=== PATIENT | female | born 1960 | race Caucasian/White ===

== ENCOUNTER 2017-02-22 12:27 | Inpatient (IN) | payer OTHER ==
--- NOTE | ~2017-02-22 | PA ---
Unit #: [id number] #: [id number] Patient: ARSEN PENN [id number] [facility] [address] [place] [address] [id number] I MR#: [id number] NAME: ARSEN PENN ROOM: P173 Age: 56 Sex: F Admission Date: 02/22/2017 : 1960 Date of Assessment: 02/22/2017 Attending Physician: Saurav Clarke M.D. Admitting Physician: Saurav Clarke M.D. Primary Care Physician: Bryant Floyd M.D. PSYCHIATRIC ASSESSMENT DATE OF SERVICE 02/22/2017. IDENTIFYING DATA Ms. Mock is a 56-year-old white female, who is a resident of [place], [place], who was self-referred to the hospital on a voluntary basis and had a blood alcohol level of 0.439. CHIEF COMPLAINT "I've been detoxing from alcohol and methadone, I've been drinking." HISTORY OF PRESENT ILLNESS Ms. Mock is a 56-year-old white female with a history of alcohol and opioid dependence. Reports that she has been drinking about a fifth of vodka a day, and I quit, I had severe stomach pain and I've been on methadone from about 1992 and taking for the past 2 years and I have a history of feeling I put on methadone. My dad and and I've been with my for 20 years and my dad 6 months later and I had to take care of my mom all the time and I've a lot of grief and I started to drink more and the [facility] told me that I had to stop drinking, but I'm not able to do it on my own. I tried to quit drinking on my own for the past few days and I started having to have and stomach pain and I started throwing up and really bad headaches, and really bad anxiety and I cannot stop or eat anything for the past few days to help with some depression and states "mostly, it is pretty much me and my mom and I can't leave her alone, and I had to take care of her." The patient reports an increasing depression, anxiety, irritability, restlessness, feelings of hopelessness and helplessness, but denies any suicidal ideations, intent, or plan. SUBSTANCE ABUSE HISTORY The patient reports extensive history of substance abuse including alcohol, cannabis, cocaine, opioids, acid and benzodiazepine, but currently alcohol and opioids appear to be her drug of choice. She reports that she has been drinking a fifth of vodka a day and has been getting [facility] as well. PAST PSYCHIATRIC HISTORY The patient has had a history of multiple inpatient chemical dependency treatments at [facility] as well as other facilities and review of the medical records indicate that currently she is not active in any treatment program, is not seeing a psychiatrist, and is not taking any psychotropic medications. Unit #: [id number] #: [id number] Patient: ARSEN PENN PAST MEDICAL HISTORY Hypertension. ALLERGIES No known medication allergies. CURRENT MEDICATIONS Atenolol. PERSONAL AND SOCIAL HISTORY A 56-year-old white female, who reports that she is single, unemployed, and lives at home with her mother and her sister. She reports poor social support system. She reports she is grieving the loss of her father and her . MENTAL STATUS EXAMINATION Middle-aged white female, who was casually dressed with fair personal hygiene, appears to be in no acute distress or discomfort. She was awake and alert on interaction with intact orientation to time, place, and person. Her mood was anxious and depressed with a congruent affect. Her speech was slow and restricted in content. Her thought processes were disorganized with some looseness of associations. She denies any suicidal or homicidal ideations, and also denies any auditory or visual hallucinations. Her insight and judgment remain significantly impaired. DIAGNOSTIC IMPRESSION Psychiatric: 1. Alcohol dependence, moderate and acute withdrawals. 2. Opioid dependence, moderate and acute withdrawals. 3. Alcohol-induced mood disorder. Medical: Hypertension. Stressors: Moderate psychosocial stressors. TREATMENT PLAN 1. The patient has presented with a history of substance abuse and mood disorder, and has been decompensating and will need inpatient hospitalization for detoxification, safety, and stabilization. We will start her back on her home medications. We will adjust the medications and monitor response. 2. Supportive therapy was provided to the patient. ESTIMATED LENGTH OF STAY 5 to 7 days. ABILITY TO HELP SELF Limited. WILLINGNESS TO HELP SELF The patient appears to be willing to help self. STRENGTHS 1. Communicative. 2. Cooperative. PROBLEMS 1. Chronic dysphoric symptoms. Unit #: [id number] #: [id number] Patient: ARSEN PENN 2. Chronic chemical dependency. 3. Poor social support system. DISCHARGE CRITERIA This will be contingent upon the patient's ability to go through detox without having any significant withdrawal symptoms as well as her ability to stay safe to herself, particularly after discharge from the hospital. Dictated by... Don Page/ladi TD: 02/23/2017 07:56 JOB #: [id number] PSYCHIATRIC ASSESSMENT Page 1 of 1 X Saurav Clarke MD X PSYCHIATRIC ASSESSMENT
--- NOTE | ~2017-02-22 | HP ---
Unit #: [id number] #: [id number] Patient: STACI PENN [id number] [place] [address] [id number] I MR#: [id number] NAME: STACI PENN ROOM: P173 Age: 56 Sex: F Admission Date: 02/22/2017 : 1960 Attending Physician: Saurav Clarke M.D. Admitting Physician: Saurav Clarke M.D. Primary Care Physician: Bryant Floyd M.D. HISTORY AND PHYSICAL HISTORY OF PRESENT ILLNESS Staci is a 56 year old [address] to [facility] because of her abuse of alcohol. She has been in a methadone program for many years by her report. She was recently "kicked out" because of he abuse of alcohol. PAST MEDICAL HISTORY 1. Long history of alcohol abuse. 2. History of opioid abuse. 3. History of withdrawal seizures, benzodiazepines. 4. Hepatitis C. a. The patient reports she did not complete treatment. PAST SURGICAL HISTORY Low back. ALLERGIES No known drug allergies. SOCIAL HISTORY Smokes one pack per day. Drinks at least a fifth of liquor on a daily basis. Has a long history of illicit substance abuse. Reports that she has been in a methadone clinic for many many years, but then further reports that she has recently used IV heroin. FAMILY HISTORY Medically noncontributory. REVIEW OF SYSTEMS CONSTITUTIONAL: No fever or chills. HEENT: Denies any sore throat, ear pain or runny nose. CARDIOVASCULAR: Denies chest pain, irregular heart rhythm or palpitations. CHEST: Denies shortness of breath or cough. No hemoptysis. GASTROINTESTINAL: Denies nausea, vomiting, diarrhea or chronic constipation. ENDOCRINE: Denies history of increased thirst or urination. No recent significant weight loss or gain. GENITOURINARY: Denies dysuria, frequency, or hematuria. SKIN: Denies any rashes. HEMATOLOGIC: Denies history of increased bleeding or bruising. MUSCULOSKELETAL: Denies any hot, swollen joints. No generalized muscle pain. NEUROLOGIC: Denies problems with vision or speech. No frequent, severe headaches. No numbness, tingling or weakness in any extremities. Denies Unit #: [id number] #: [id number] Patient: STACI PENN loss of bladder or bowel control. CURRENT MEDICATIONS 1. Detox protocol. 2. Tenormin 25 mg q. day. PHYSICAL EXAMINATION GENERAL: Alert, appearing much older than her stated age of 56. No apparent distress. VITAL SIGNS: Blood pressure 172/110, heart rate 80, respirations 16, and temperature 98.6. WEIGHT: 190. HEIGHT: 5 feet 7 inches. SKIN: Warm and dry without rash or lesion. HEENT: Normocephalic. TMs not viewed. Oral and nasal passages clear. Conjunctivae clear. PERRLA. EOMs intact. NECK: Supple without lymphadenopathy or thyromegaly. HEART: Regular rate and rhythm without murmur. LUNGS: Clear. ABDOMEN: Soft, nontender. : Not done. EXTREMITIES: No evidence of cyanosis, clubbing or edema. Moves all without focal deficit. NEUROLOGICAL: Grossly within normal limits. Cranial Nerves: II: Visual sotelo are intact. III, IV AND : Extraocular movements are intact. Pupils are equal, round and reactive to light. V: Facial sensation is grossly normal. VII: Facial movements and expression are normal. VIII: Auditory acuity grossly intact. IX, X: Uvula is midline. Phonation is normal. XI: Patient shrugs shoulders and turns head normally. XII: Tongue protrudes in the midline. Sensory and Motor Function: Sensory and motor sensation is grossly normal. Motor: moves all extremities well. Coordination: Gait is normal. Deep Tendon Reflexes: Intact. IMPRESSION Psychiatric admission. RECOMMENDATIONS PSYCHIATRIC: Per psychiatrist. MEDICAL: I see no contraindication to participate in this facility's activities. MEDICAL PROGNOSIS Good. MEDICAL CONDITION Stable. Dictated by... Shira Castro P.A.-C. for Don Carr/kirit Unit #: [id number] #: [id number] Patient: STACI PENN TD: 02/23/2017 07:17 JOB #: [id number] HISTORY AND PHYSICAL Page 1 of 1 X Shira Castro HISTORY AND PHYSICAL
--- NOTE | ~2017-02-22 | PN ---
Unit #: [id number] #: [id number] Patient: ARSEN KING [id number] [facility] [address] [place] [address] [id number] I MR#: [id number] NAME: ARSEN KING ROOM: 73 Age: 56 Sex: F Admission Date: 02/22/2017 : 1960 Attending Physician: Saurav Clarke M.D. Admitting Physician: Saurav Calrke M.D. Primary Care Physician: Don Haddad PROGRESS NOTES DATE OF SERVICE: 02/23/2017 SUBJECTIVE Ms. King is a 56-year-old white female with substance abuse and mood disorder, who was seen today and chart was reviewed and the case was discussed with the staff. She has been anxious, withdrawn, and rather seclusive to herself. Meanwhile, she has been cooperative with the treatment recommendations and has been taking the medications and tolerating them fairly well with no reported side effects. MENTAL STATUS EXAMINATION Middle-aged white female, who was casually dressed with fair personal hygiene, appears to be in no acute distress or discomfort. She was awake and alert on interaction with intact orientation. Her mood was anxious with a congruent affect. She denies any suicidal or homicidal ideations and also denies any auditory or visual hallucinations. Her insight and judgment remain slightly impaired. TREATMENT PLAN 1. We will continue her on her current medications and treatment protocol. We will monitor her response to the medications and make further adjustments as needed. 2. We will continue to follow up. Dictated by... Don Page/ladi TD: 02/23/2017 17:42 JOB #: [id number] Unit #: [id number] #: [id number] Patient: ARSEN KING PROGRESS NOTES Page 1 of 1 X Saurav Clarke MD PROGRESS NOTE
--- NOTE | ~2017-02-22 | PN ---
Unit #: [id number] #: [id number] Patient: ARSEN KING [id number] [facility] [address] [place] [address] [id number] I MR#: [id number] NAME: ARSEN KING ROOM: [facility] Age: 56 Sex: F Admission Date: 02/22/2017 : 1960 Attending Physician: Saurav Clarke M.D. Admitting Physician: Saurav Clarke M.D. Primary Care Physician: Don Haddad PROGRESS NOTES DATE 02/24/2017 DISCUSSION Ms. King is seen today in coverage for Dr. Clarke. She complains of difficulty sleeping and restless legs at bedtime. She appears anxious and somewhat agitated and is having active withdrawal symptoms today. She is alert and fully oriented with no evidence of psychosis and no active suicidal ideation. ASSESSMENT Polysubstance dependence. PLAN I will add trazodone at bedtime for insomnia and monitor for response. Dictated by... Don Casiano/yohannes TD: 02/27/2017 08:41 JOB #: [id number] [facility] PROGRESS NOTES Page 1 of 1 X Francesco Martin MD X PROGRESS NOTE
--- NOTE | ~2017-02-22 | DS ---
Unit #: [id number] #: [id number] Patient: ARSEN KING [id number] [place] [address] [id number] I MR#: [id number] NAME: ARSEN KING ROOM: P173 Age: 56 Sex: F Admission Date: 02/22/2017 : 1960 Discharge Date: 02/26/2017 Attending Physician: Saurav Clarke M.D. Primary Care Physician: Bryant Floyd M.D. DISCHARGE SUMMARY IDENTIFYING DATA Ms. King is a 56-year-old white female, who is a resident [place], [place], and was self-referred to the hospital on a voluntary basis with a blood alcohol level of 0.439. DISCHARGE DIAGNOSES Psychiatric: Alcohol dependence, moderate and acute withdrawals; opioid dependence, moderate and acute withdrawals; alcohol-induced mood disorder. Medical: Hypertension. Stressors: Moderate psychosocial stressors. HISTORY OF PRESENT ILLNESS Please see initial psychiatric evaluation for details. PAST PSYCHIATRIC HISTORY Please see initial psychiatric evaluation for details. PAST MEDICAL HISTORY Please see initial psychiatric evaluation for details. HOSPITAL COURSE The patient was admitted to the adult chemical dependency unit at [facility] and was oriented to the hospital environment. Routine p.r.n. medications were initiated, and she was started on both alcohol and opioid detox protocol and was closely monitored. She was taking the medications regularly and was tolerating them fairly well and was able to show a decent and therapeutic response and was able to come out of the detox without any complications and was willing to continue treatment on an outpatient basis and as such, it was decided that she will be discharged home and will continue treatment on an outpatient basis. DISCHARGE MEDICATIONS Tenormin 25 mg a day for hypertension. DISCHARGE CONDITION Stable. PROGNOSIS Fair. Dictated by... Saurav Clarke M.D. Unit #: [id number] #: [id number] Patient: ARSEN KING IAA/modl TD: 02/26/2017 06:38 JOB #: [id number] DISCHARGE SUMMARY Page 1 of 1 X Sauarv Clarke MD X DISCHARGE SUMMARY
[~2017-02-22 12:27] MED LIST: ATENOLOL PO; METHADONE PO; PHENERGAN25 MG PO
[2017-02-23 09:43] LABS: BASOPHIL% 0.6 % (0-2.5); DIFF IND YES; EOSINOPHIL% 0.7 % (0.0-7.0); HEMATOCRIT 40.6 % (35.0-45.0); HEMOGLOBIN 13.8 gm/dL (12.0-16.0); LYMPHOCYTE# 1.4 X10e3 (1.0-3.5); LYMPHOCYTE% 27.8 % (17.0-45.0); MEAN CELL VOLUME 106.4 FL (83-96); MEAN CORPUSCULAR HEMOGLOBIN 36.2 PG (28-34); MEAN PLATELET VOLUME 8.4 FL (6.5-11.5); MONOCYTE# 0.5 X10e3 (0-1.0); NEUTROPHIL% 60.9 % (40-75); PLATELET COUNT 121 X10e3 (140-420); RED BLOOD COUNT 3.81 X10e (3.90-5.30); RED CELL DISTRIBUTION WIDTH 13.9 % (11.0-15.5)
[2017-02-23 10:01] LABS: URINE APPEARANCE CLOUDY; URINE BLOOD NEG (NEG); URINE COLOR DK YELLOW; URINE GLUCOSE NEG (NEG); URINE KETONE 3+ (NEG); URINE LEUKOCYTE ESTERASE 1+ (NEG); URINE NITRATE NEG (NEG); URINE PROTEIN 1+ (NEG); URINE SPECIFIC GRAVITY 1.024 (1.003-1.035)
[2017-02-23 10:04] LABS: URINE BACTERIA AUWI 2+ (NEGATIVE); URINE SQUAMOUS EPITHELIAL CELL FEW /[HPF]
[2017-02-23 10:07] LABS: THYROID STIMULATING HORMONE 2.28 uIU/ml (0.34-5.60)
[2017-02-23 10:14] LABS: FREE THYROXIN (T4) 0.63 ng/dL (0.58-1.64)
[2017-02-23 10:15] LABS: ALBUMIN SERUM 4.2 g/dL (3.5-5.0); BILIRUBIN,TOTAL 1.8 mg/dL (0.2-2.0); BUN/CREATININE RATIO 17.5; CALCIUM SERUM 9.4 mg/dL (8.4-10.2); CREATININE SERUM 1.2 mg/dL (0.6-1.4); GLOM FILT RATE Estimated 51.2 mL/min (>60); PROTEIN TOTAL SERUM 7.3 g/dL (6.0-8.3)
[2017-02-23 10:44] LABS: RBC NORMAL YES; STOMATOCYTE PRESENT
[2017-02-23 10:46] LABS: ANISOCYTOSIS SL; PLATELET ESTIMATE DECREASED (NORMAL)
[2017-02-23 11:02] LABS: AMPHETAMINE NEG (NEG); BARBITURATES NEG (NEG); BENZODIAZEPINES POS (NEG); COCAINE NEG (NEG); MARIJUANA NEG (NEG); OPIATES POS (NEG); TRICYCLIC ANTIDEPRESSANTS NEG (NEG); U METHADONE POS (NEG)
[2017-02-23 11:40] LABS: URINE MUCUS PRESENT
[2017-02-23 11:41] LABS: URINE BILIRUBIN NEG (NEG)
[2017-02-23 11:47] LABS: URBCS1 AUWI 0-2 /[HPF] (0-2)
== END 2017-02-26 09:50 | DRG 897 ==
LOC: P1E 12:27
PROVIDERS: Psychiatry & Neurology Psychiatry
PROC: HZ2ZZZZ Detoxification Services for Substance Abuse Treatment (ICD-10-PCS; principal; 2017-02-22)
DX: F10.239 Alcohol dependence with withdrawal, unspecified (principal); F11.23 Opioid dependence with withdrawal; F10.24 Alcohol dependence with alcohol-induced mood disorder; I10 Essential (primary) hypertension; F17.210 Nicotine dependence, cigarettes, uncomplicated
CPT/HCPCS: 80053; 80307; 81003; 84439; 84443; 85025; 86592

== ENCOUNTER 2017-05-04 07:36 | Emergency (ER) | payer OTHER ==
--- NOTE | ~2017-05-04 | CR126 ---
[facility] A Service of [facility] RADIOLOGY TEXT RESULTS PATIENT: ARSEN PENN LOCATION: SED : [birth year] UNIT #: [id number] AGE: [address]: Az Paula MD SEX: F ORDER DR: [id number] [address] [address] [id number] E MR#: [id number] Acc #: [id number] NAME: ARSEN PENN : 1960 SEX: F STUDY DATE/TIME: 05/04/2017 7:57 UNIT: SED ROOM: STUDY DESCRIPTION: CR Foot Complete Min 3 View Lt Attending Physician: Az Paula M.D. Ordering Physician: Az Paula M.D. Primary Care Physician: Bryant Floyd M.D. MEDICAL IMAGING REPORT This report is preliminary unless electronic signature is present. EXAM Three views left foot. Date: 05/04/2017 HISTORY Foot pain for 3 weeks, bruising to the mid toe and small toe pain. COMPARISON None. FINDINGS There is a transversely oriented mildly nondisplaced fracture involving the proximal to mid shaft of the proximal phalanx of the left fifth toe. There is about 1-2 mm medial displacement of the distal fracture fragment. No definite intra articular fracture extension is seen. No additional fractures identified. No joint dislocation. No retained radiopaque foreign body is seen in the soft tissues. IMPRESSION Minimally-displaced transversely origin fracture involving the proximal to mid shaft of the proximal phalanx of the left fifth toe without definite articular involvement. No joint dislocation. Dictated by... Radha Renae M.D. THIS IS AN ELECTRONICALLY VERIFIED REPORT Radha Renae M.D. at 05/07/2017 8:[address] [facility]/jamari [facility] A Service [facility] RADIOLOGY TEXT RESULTS PATIENT: ARSEN PENN LOCATION: SED : [birth year] UNIT #: [id number] AGE: [address]: Az Paula MD SEX: F ORDER DR: TD: 05/04/2017 12:04 JOB #: [id number] MEDICAL IMAGING REPORT Page 1 of 1
== END 2017-05-04 09:24 | disposition home or self-care (01) ==
LOC: SED 07:36
DX: S92.512A Displaced fracture of proximal phalanx of left lesser toe(s), initial encounter for closed fracture (principal); I10 Essential (primary) hypertension; F17.200 Nicotine dependence, unspecified, uncomplicated; Z79.899 Other long term (current) drug therapy; W22.8XXA Striking against or struck by other objects, initial encounter; Y92.69 Other specified industrial and construction area as the place of occurrence of the external cause
CPT/HCPCS: 73630; 99283

== ENCOUNTER 2017-06-22 16:54 | Inpatient (IN) | payer OTHER ==
[~2017-06-22] VITALS: Ht 167.6 cm; Wt 79.4 kg
--- NOTE | ~2017-06-22 | DS ---
Unit #: [id number] #: [id number] Patient: ARSEN KING [id number] [facility] [address] [place] [address] [id number] I MR#: [id number] NAME: ARSEN KING ROOM: P173 Age: 56 Sex: F Admission Date: 06/22/2017 : 1960 Discharge Date: 06/26/2017 Attending Physician: Saurav Clarke M.D. Primary Care Physician: Bryant Floyd M.D. DISCHARGE SUMMARY IDENTIFICATION DATA Ms. King is a 56-year-old white female who is a resident of [place], [place], and he is known to us from previous encounter and was self-referred to the hospital on voluntary basis with blood alcohol level of 0.235. DISCHARGE DIAGNOSES PSYCHIATRIC: Alcohol dependence, moderate, in acute withdrawals. Opioid dependence, moderate. Benzodiazepine abuse, moderate. Alcohol-induced mood disorder. MEDICAL: Hypertension. STRESSORS: Mild psychosocial stressors. HISTORY OF PRESENT ILLNESS Same as in initial psychiatric evaluation. PAST PSYCHIATRIC HISTORY Same as in initial psychiatric evaluation. PAST MEDICAL HISTORY Same as in initial psychiatric evaluation. HOSPITAL COURSE The patient was admitted to the adult psychiatric and chemical dependence unit at [facility] and was oriented to the hospital environment. Routine p.r.n. medications were initiated, and she was started back on her home medications. Alcohol detox protocol was initiated, and she was closely monitored. She was also given Doxepin to help her with sleep and was closely monitored. He was taking the medications regularly and was tolerating them fairly well and was able to come out of the detox without any complications. He was pushing to leave and was denying any suicidal or homicidal ideations and was not meeting criteria for further inpatient psychiatric hospitalizations. As such it was decided that she will be discharged home, and we will continue treatment on outpatient basis. DISCHARGE MEDICATIONS Doxepin 50 mg at bedtime for sleep. CONDITION AT DISCHARGE Stable. PROGNOSIS Fair. Unit #: [id number] #: [id number] Patient: ARSEN KING Dictated by... Saurav Clarke M.D. IAA/bzg TD: 06/27/2017 08:42 JOB #: [id number] DISCHARGE SUMMARY Page 1 of 1 X Saurav Clarke MD DISCHARGE SUMMARY
--- NOTE | ~2017-06-22 | PA ---
Unit #: [id number] #: [id number] Patient: ARSEN KING [id number] [facility] [address] [place] [address] [id number] I MR#: [id number] NAME: ARSEN KING ROOM: 86 Age: 56 Sex: F Admission Date: 06/22/2017 : 1960 Date of Assessment: Attending Physician: Saurav Clarke M.D. Admitting Physician: Saurav Clarke M.D. Primary Care Physician: Bryant Floyd M.D. PSYCHIATRIC ASSESSMENT DATE OF SERVICE 06/23/2017. IDENTIFYING DATA Ms. King is a 56-year-old, , white female, who is a resident of [place], [place], and is known to us from previous encounter, was self-referred to the hospital on a voluntary basis with a blood alcohol level of 0.235. CHIEF COMPLAINT "I've been in a methadone Clinic for about 25 years and I've been sporadic with meth dosages." HISTORY OF PRESENT ILLNESS Ms. King is a 56-year-old white female with a history of substance abuse and dependence, who is known to me from previous encounter as she was detoxed in 02/2017 and now brought herself back to the hospital requesting detox from alcohol, methadone, and benzodiazepine and stating that she has been with the Methadone Clinic on and off for the last 25 years and she has been sporadic with the dosages and "I'm trying to come off it, my last was like 3 days of lately in the past 3 weeks. I've been drinking at least daily a fifth of vodka, sometime even more." The patient does report increasing depression, anxiety, irritability, restlessness, feelings of hopelessness and helplessness, but denies any suicidal ideations, intent, or plan. SUBSTANCE ABUSE HISTORY The patient reports history of alcohol, cannabis, and cocaine, opioids and acid and benzodiazepine and methadone abuse and reports that she has been drinking a fifth of vodka on daily basis with the last drink being on the day of coming to the hospital and had a blood alcohol level of 0.235 and also reports that she has been using Klonopin and has been on methadone through the [facility] Clinic with the last use 3 days ago. PAST PSYCHIATRIC HISTORY The patient has had a history of chemical dependency treatment at [facility], and review of the medical records indicate that currently she is not active in treatment program, is not seeing a psychiatrist. PAST MEDICAL HISTORY Significant for hypertension and history of withdrawal seizures. ALLERGIES Unit #: [id number] #: [id number] Patient: ARSEN KING No known medication allergies. PERSONAL AND SOCIAL HISTORY A 56-year-old white female, who reports that she is and lives at home with her [id number] and her sister and is currently unemployed and reports poor social support system. MENTAL STATUS EXAMINATION Middle-aged white female, who was casually dressed with fair personal hygiene, appears to be in no acute distress or discomfort. She was awake and alert on interaction with intact orientation to time, place, and person. Her mood was anxious and depressed with a congruent affect. Her speech was slow and restricted in content. She denies any suicidal or homicidal ideations and also denies any auditory or visual hallucinations. Her insight and judgment remain slightly impaired. DIAGNOSTIC IMPRESSION Psychiatric: Alcohol dependence, moderate and acute withdrawals; opioid dependence, moderate; benzodiazepine abuse, moderate; alcohol-induced mood disorder. Medical: Hypertension. Stressors: Moderate psychosocial stressors. TREATMENT PLAN 1. The patient has presented with a history of mood disorder and substance abuse and has been decompensating and will need inpatient hospitalization for safety and stabilization. We will start her on detox protocol. We will closely monitor her for any worsening withdrawal symptoms. 2. Supportive therapy was provided to the patient. 3. Safe, structured, and nourishing environment will be provided. ESTIMATED LENGTH OF STAY 5 to 7 days. ABILITY TO HELP SELF Limited. WILLINGNESS TO HELP SELF The patient appears to be willing to help self. STRENGTHS 1. Communicative. 2. Cooperative. PROBLEMS 1. Chronic dysphoric symptoms. 2. Chronic chemical dependency. 3. Poor social support system. DISCHARGE CRITERIA This will be contingent upon the patient's ability to go through detox without having any significant withdrawal symptoms and her ability to stay safe to herself, particularly after discharge from the hospital. Unit #: [id number] #: [id number] Patient: ARSEN KING Dictated by... Don Page/ladi TD: 06/24/2017 04:42 JOB #: [id number] PSYCHIATRIC ASSESSMENT Page 1 of 1 X Saurav Clarke MD PSYCHIATRIC ASSESSMENT
--- NOTE | ~2017-06-22 | PN ---
Unit #: [id number] #: [id number] Patient: ARSEN KING [id number] [facility] [address] [place] [address] [id number] MR#: [id number] NAME: ARSEN KING ROOM: 73 Age: 56 Sex: F Admission Date: 06/22/2017 : 1960 Attending Physician: Saurav Clarke M.D. Admitting Physician: Saurav Clarke M.D. Primary Care Physician: Don Haddad PROGRESS NOTES DATE OF SERVICE: 06/25/2017 SUBJECTIVE Ms. King is a 56-year-old white female, who was seen today and chart was reviewed and the case was discussed with the staff. She has been anxious, withdrawn, and rather seclusive to herself. Meanwhile, she has been cooperative with the treatment recommendations and has been taking the medications and tolerating them fairly well with no reported side effects. MENTAL STATUS EXAMINATION Middle-aged white female, who was casually dressed with fair personal hygiene, appears to be in no acute distress or discomfort. She was awake and alert on interaction with intact orientation. Her mood was anxious with a congruent affect. She denies any suicidal or homicidal ideations. Her insight and judgment remain slightly impaired. TREATMENT PLAN 1. We will continue her on her current medications and treatment protocol. We will monitor her response to the medications and make further adjustments as needed. 2. We will continue to follow up. Dictated by... Don Page/ladi TD: 06/25/2017 11:23 JOB #: [id number] [facility] PROGRESS NOTES Page 1 of 1 X Saurav Clarke MD X PROGRESS NOTE
--- NOTE | ~2017-06-22 | PN ---
Unit #: [id number] #: [id number] Patient: ARSEN KING [id number] [facility] [address] [place] [address] [id number] MR#: [id number] NAME: ARSEN KING ROOM: [facility] Age: 56 Sex: F Admission Date: 06/22/2017 : 1960 Attending Physician: Saurav Clarke M.D. Admitting Physician: Saurav Clarke M.D. Primary Care Physician: Don Haddad PROGRESS NOTES DATE 06/24/2017 DISCUSSION Ms. King is a 56-year-old white female who was seen today and chart was reviewed and case was discussed with the staff. She has been doing fairly well with no agitation, irritability and has been calm and cooperative with treatment recommendations as she has been taking the medications and tolerating them fairly well with no reported side effects. MENTAL STATUS EXAMINATION Young white female who was casually dressed with fair personal hygiene, appears to be in no acute distress or discomfort. She was awake and alert on interaction with intact orientation. Her mood was anxious with congruent affect. She denies any suicidal or homicidal ideations. Her insight and judgement remains slightly impaired. TREATMENT PLAN 1. We will continue her on her current medications and treatment protocol. We will monitor her response to the medication and make further adjustments as needed. 2. We will continue to follow up. Dictated by... Don Page/kt TD: 06/25/2017 04:28 JOB #: [id number] Unit #: [id number] #: [id number] Patient: ARSEN KING PROGRESS NOTES Page 1 of 1 X Saurav Clarke MD X PROGRESS NOTE
[2017-06-23 12:46] LABS: BASOPHIL% 0.6 % (0-2.5); DIFF IND YES; EOSINOPHIL% 0.7 % (0.0-7.0); HEMATOCRIT 35.8 % (35.0-45.0); HEMOGLOBIN 12.4 gm/dL (12.0-16.0); LYMPHOCYTE# 1.4 X10e3 (1.0-3.5); LYMPHOCYTE% 25.4 % (17.0-45.0); MEAN CELL VOLUME 107.2 FL (83-96); MEAN CORPUSCULAR HEMOGLOBIN 37.2 PG (28-34); MEAN CORPUSCULAR HGB CONC 34.8 g/dL (30-36); MEAN PLATELET VOLUME 7.7 FL (6.5-11.5); MONOCYTE# 0.4 X10e3 (0-1.0); NEUTROPHIL# 3.8 X10e3 (1.5-7.1); NEUTROPHIL% 66.3 % (40-75); PLATELET COUNT 160 X10e3 (140-420); RED BLOOD COUNT 3.34 X10e (3.90-5.30); RED CELL DISTRIBUTION WIDTH 18.4 % (11.0-15.5); WHITE BLOOD COUNT 5.7 X10e3 (4.0-10.5)
[2017-06-23 13:00] LABS: ALBUMIN SERUM 4.4 g/dL (3.5-5.0); BILIRUBIN,TOTAL 2.2 mg/dL (0.2-2.0); BUN/CREATININE RATIO 18.33; CALCIUM SERUM 9.4 mg/dL (8.4-10.2); CREATININE SERUM 0.6 mg/dL (0.6-1.4); GLOM FILT RATE Estimated 103.3 mL/min (>60); POTASSIUM 3.7 mmol/L (3.5-5.1); PROTEIN TOTAL SERUM 7.3 g/dL (6.0-8.3)
[2017-06-23 13:04] LABS: ANISOCYTOSIS MOD; PLATELET ESTIMATE NORMAL (NORMAL)
[2017-06-24 10:56] LABS: URINE APPEARANCE CLEAR; URINE BLOOD NEG (NEG); URINE COLOR DK YELLOW; URINE GLUCOSE NEG (NEG); URINE KETONE TRACE (NEG); URINE LEUKOCYTE ESTERASE TRACE (NEG); URINE NITRATE NEG (NEG); URINE PH 6.5 (5-8); URINE PROTEIN 1+ (NEG)
[2017-06-24 10:59] LABS: URBCS1 AUWI 0-2 /[HPF] (0-2); URINE BACTERIA AUWI NEG (NEGATIVE); URINE SQUAMOUS EPITHELIAL CELL NONE SEEN /[HPF]; UWBCS1 AUWI 0-2 (0-5)
[2017-06-24 11:01] LABS: URINE BILIRUBIN NEG (NEG)
[2017-06-24 11:54] LABS: AMPHETAMINE NEG (NEG); BARBITURATES NEG (NEG); BENZODIAZEPINES POS (NEG); COCAINE NEG (NEG); MARIJUANA NEG (NEG); OPIATES NEG (NEG); TRICYCLIC ANTIDEPRESSANTS NEG (NEG); U METHADONE POS (NEG)
== END 2017-06-26 09:45 | DRG 897 ==
LOC: P1E 18:52
PROVIDERS: Psychiatry & Neurology Psychiatry
DX: F10.239 Alcohol dependence with withdrawal, unspecified (principal); F11.20 Opioid dependence, uncomplicated; F10.24 Alcohol dependence with alcohol-induced mood disorder; Y90.7 Blood alcohol level of 200-239 mg/100 ml
CPT/HCPCS: 80053; 80307; 81003; 85025; 86592; J2550

== ENCOUNTER 2017-07-08 17:00 | Inpatient (IN) | payer OTHER ==
[~2017-07-08] VITALS: Ht 167.6 cm; Wt 83.5 kg
--- NOTE | ~2017-07-08 | PA ---
Unit #: [id number] #: [id number] Patient: ARSEN KING [id number] [place] [address] [id number] I MR#: [id number] NAME: ARSEN KING ROOM: P210 Age: 56 Sex: F Admission Date: 07/09/2017 : 1960 Date of Assessment: Attending Physician: Saurav Clarke M.D. Admitting Physician: Saurav Clarke M.D. Primary Care Physician: Bryant Floyd M.D. PSYCHIATRIC ASSESSMENT DATE OF SERVICE 07/09/2017. IDENTIFYING DATA Ms. King is a 56-year-old white female, who is a resident of [place], [place], and is known to us from previous encounter and was self-referred to the hospital on a voluntary basis. CHIEF COMPLAINT "Alcohol and methadone detox." HISTORY OF PRESENT ILLNESS Ms. King is a 56-year-old white female with history of substance abuse and mood disorder, who is known to us from previous encounter and came to the hospital with a blood alcohol level of 0.141 and stated that she wanted to detox from alcohol and methadone and that she has not been able to dose on methadone due to drinking alcohol and that she drinks a pint or a fifth on a daily basis and drank a fifth earlier today and reports that she has been on methadone since 1992 and does report increasing depression, anxiety, significant consequences because of her addiction, and feelings of hopelessness and helplessness, but denies any suicidal ideations, intent, or plan. SUBSTANCE ABUSE HISTORY The patient reports history of alcohol and opioid abuse and has been using both of those on a regular basis, though she describes alcohol to be her drug of choice and has been drinking a pint or a fifth on a daily basis. PAST PSYCHIATRIC HISTORY The patient has had a history of chemical dependency treatment at [facility], and review of the medical records indicate currently she is not active in any treatment program, is not seeing a psychiatrist, and is not taking any psychotropic medications. PAST MEDICAL HISTORY Hypertension and hepatitis C. ALLERGIES No known medication allergies. CURRENT MEDICATIONS None. Unit #: [id number] #: [id number] Patient: ARSEN KING PERSONAL AND SOCIAL HISTORY A 56-year-old white female, who reports that she is single, unemployed, and lives alone and has poor social support system. MENTAL STATUS EXAMINATION Middle-aged white female, who was casually dressed with fair personal hygiene, appears to be in no acute distress or discomfort. She was awake and alert on interaction with intact orientation to time, place, and person. Her mood was anxious and depressed with a congruent affect. Her speech was slow and restricted in content. She denies any suicidal or homicidal ideations and also denies any auditory or visual hallucinations. Her insight and judgment remain significantly impaired. DIAGNOSTIC IMPRESSION Psychiatric: Alcohol dependence, moderate, in acute withdrawals and opioid dependence, moderate. Medical: Hypertension and hepatitis C. Stressors: Moderate psychosocial stressors. TREATMENT PLAN 1. The patient has presented with a history of mood disorder and substance abuse and has been decompensating and will need inpatient hospitalization for safety and stabilization. We will start her back on her home medications. We will adjust the medications and monitor response. 2. Supportive therapy was provided to the patient. 3. Safe, structured, and nourishing environment will be provided. ESTIMATED LENGTH OF STAY 4 to 5 days. ABILITY TO HELP SELF Limited. WILLINGNESS TO HELP SELF The patient appears to be willing to help self. STRENGTHS 1. Communicative. 2. Cooperative. PROBLEMS 1. Chronic dysphoric symptoms. 2. Chronic chemical dependency. 3. Poor social support system. DISCHARGE CRITERIA This will be contingent upon the patient's ability to go through detox without having any significant withdrawal symptoms as well as her ability to stay safe to herself, particularly after discharge from the hospital. Dictated by... Don Page/ladi TD: 07/09/2017 12:59 JOB #: [id number] Unit #: [id number] #: [id number] Patient: ARSEN KING PSYCHIATRIC ASSESSMENT Page 1 of 1 X Saurav Clarke MD PSYCHIATRIC ASSESSMENT
--- NOTE | ~2017-07-08 | HP ---
Unit #: [id number] #: [id number] Patient: STACI PENN [id number] [place] [address] [id number] MR#: [id number] NAME: STACI PENN ROOM: P210 Age: 56 Sex: F Admission Date: 07/09/2017 : 1960 Attending Physician: Saurav Clarke M.D. Admitting Physician: Saurav Clarke M.D. Primary Care Physician: Bryant Floyd M.D. HISTORY AND PHYSICAL HISTORY OF PRESENT ILLNESS Staci is a 56 year old admitted to [address] [place] [address] because of her continued abuse of alcohol. She has had other admissions to this facility. PAST MEDICAL HISTORY 1. Long history of alcohol abuse. 2. History of opioid abuse. a. She reports that she is in a methadone program. 3. History of withdrawal seizures, benzodiazepines. 4. Hepatitis C. a. She did not complete treatment. 5. High blood pressure. She is noncompliant with medications. PAST SURGICAL HISTORY Low back. ALLERGIES No known drug allergies. SOCIAL HISTORY Smokes one pack per day. Drinks a fifth of liquor on a daily basis. Has a long history of illicit substance abuse but has been in a methadone clinic for many years. FAMILY HISTORY Medically noncontributory. REVIEW OF SYSTEMS CONSTITUTIONAL: No fever or chills. HEENT: Denies any sore throat, ear pain or runny nose. CARDIOVASCULAR: Denies chest pain, irregular heart rhythm or palpitations. CHEST: Denies shortness of breath or cough. No hemoptysis. GASTROINTESTINAL: Denies nausea, vomiting, diarrhea or chronic constipation. ENDOCRINE: Denies history of increased thirst or urination. No recent significant weight loss or gain. GENITOURINARY: Denies dysuria, frequency, or hematuria. SKIN: Denies any rashes. HEMATOLOGIC: Denies history of increased bleeding or bruising. MUSCULOSKELETAL: Denies any hot, swollen joints. No generalized muscle pain. NEUROLOGIC: Denies problems with vision or speech. No frequent, severe Unit #: [id number] #: [id number] Patient: STACI PENN headaches. No numbness, tingling or weakness in any extremities. Denies loss of bladder or bowel control. CURRENT MEDICATIONS 1. Detox protocol 2. Nicotine patch 21 mg q day PHYSICAL EXAMINATION GENERAL: Alert, obese, in no apparent distress. VITAL SIGNS: Blood pressure 138/90, heart rate 90, respirations 16, temperature 98.6. WEIGHT: 184. HEIGHT: 5 foot 6 inches. SKIN: Warm and dry without rash or lesion. HEENT: Normocephalic. TMs not viewed. Oral and nasal passages clear. Conjunctivae clear. Pupils equal, round and reactive to light and accommodation. Extraocular movements intact. NECK: Supple without lymphadenopathy or thyromegaly. HEART: Regular rate and rhythm without murmur. LUNGS: Clear. ABDOMEN: Soft, nontender. : Not done. EXTREMITIES: No evidence of cyanosis, clubbing or edema. Moves all extremities without focal deficit. NEUROLOGICAL: Grossly within normal limits. Cranial Nerves: II: Visual sotelo are intact. III, IV AND : Extraocular movements are intact. Pupils are equal, round and reactive to light. V: Facial sensation is grossly normal. VII: Facial movements and expression are normal. VIII: Auditory acuity grossly intact. IX, X: Uvula is midline. Phonation is normal. XI: Patient shrugs shoulders and turns head normally. XII: Tongue protrudes in the midline. Sensory and Motor Function: Sensory and motor sensation is grossly normal. Motor: moves all extremities well. Coordination: Gait is normal. Deep Tendon Reflexes: Intact. IMPRESSION 1. Psychiatric admission. 2. High blood pressure, not controlled on admission. She is noncompliant with medications. RECOMMENDATIONS PSYCHIATRIC: Per psychiatrist. MEDICAL: 1. I see no contraindications to participating in facility's activities. 2. Start Tenormin 50 mg 1 p.o. q day. Monitor blood pressure q shift. She will need to follow up with her PCP. MEDICAL PROGNOSIS Good. MEDICAL CONDITION Stable. Unit #: [id number] #: [id number] Patient: STACI PENN Dictated by... Shira Castro P.A.-C. for Don Carr/kt TD: 07/09/2017 23:14 JOB #: [id number] HISTORY AND PHYSICAL Page 1 of 1 X Shira Castro HISTORY AND PHYSICAL
[2017-07-09 09:46] LABS: URINE APPEARANCE CLEAR; URINE BILIRUBIN NEG (NEG); URINE BLOOD NEG (NEG); URINE COLOR YELLOW; URINE GLUCOSE NEG (NEG); URINE KETONE NEG (NEG); URINE LEUKOCYTE ESTERASE 2+ (NEG); URINE NITRATE NEG (NEG); URINE PH 6.5 (5-8); URINE PROTEIN NEG (NEG); URINE SPECIFIC GRAVITY 1.016 (1.003-1.035)
[2017-07-09 09:48] LABS: BASOPHIL% 0.8 % (0-2.5); EOSINOPHIL# 0.1 X10e3 (0-0.7); EOSINOPHIL% 1.6 % (0.0-7.0); HEMATOCRIT 30.2 % (35.0-45.0); HEMOGLOBIN 10.4 gm/dL (12.0-16.0); LYMPHOCYTE# 1.3 X10e3 (1.0-3.5); LYMPHOCYTE% 35.6 % (17.0-45.0); MEAN CELL VOLUME 111.8 FL (83-96); MEAN CORPUSCULAR HEMOGLOBIN 38.4 PG (28-34); MEAN CORPUSCULAR HGB CONC 34.3 g/dL (30-36); MEAN PLATELET VOLUME 7.6 FL (6.5-11.5); MONOCYTE# 0.3 X10e3 (0-1.0); MONOCYTE% 8.7 % (3.0-12.0); NEUTROPHIL# 1.9 X10e3 (1.5-7.1); NEUTROPHIL% 53.3 % (40-75); PLATELET COUNT 193 X10e3 (140-420); WHITE BLOOD COUNT 3.5 X10e3 (4.0-10.5)
[2017-07-09 09:49] LABS: DIFF IND YES
[2017-07-09 09:51] LABS: URBCS1 AUWI 0-2 /[HPF] (0-2); URINE BACTERIA AUWI 3+ (NEGATIVE); URINE SQUAMOUS EPITHELIAL CELL FEW /[HPF]; UWBCS1 AUWI 25-50 (0-5)
[2017-07-09 10:01] LABS: ALBUMIN SERUM 3.6 g/dL (3.5-5.0); BILIRUBIN,TOTAL 1.1 mg/dL (0.2-2.0); BUN/CREATININE RATIO 16.66; CALCIUM SERUM 8.5 mg/dL (8.4-10.2); CREATININE SERUM 0.6 mg/dL (0.6-1.4); GLOM FILT RATE Estimated 103.3 mL/min (>60); POTASSIUM 3.6 mmol/L (3.5-5.1); PROTEIN TOTAL SERUM 6.2 g/dL (6.0-8.3)
[2017-07-09 10:19] LABS: AMPHETAMINE NEG (NEG); BARBITURATES NEG (NEG); BENZODIAZEPINES NEG (NEG); COCAINE NEG (NEG); MARIJUANA NEG (NEG); OPIATES NEG (NEG); TRICYCLIC ANTIDEPRESSANTS NEG (NEG); U METHADONE POS (NEG)
[2017-07-09 11:16] LABS: ANISOCYTOSIS SL; PLATELET ESTIMATE NORMAL (NORMAL); STOMATOCYTE PRESENT
== END 2017-07-10 10:40 | disposition left against medical advice (07) | DRG 894 ==
LOC: P2S 07-09 03:07
PROVIDERS: Psychiatry & Neurology Psychiatry
PROC: HZ2ZZZZ Detoxification Services for Substance Abuse Treatment (ICD-10-PCS; principal; 2017-07-09)
DX: F10.239 Alcohol dependence with withdrawal, unspecified (principal); F11.20 Opioid dependence, uncomplicated; I10 Essential (primary) hypertension; B19.20 Unspecified viral hepatitis C without hepatic coma; Z91.14 Patient's other noncompliance with medication regimen
CPT/HCPCS: 80053; 80307; 81003; 85025; 86592

== ENCOUNTER 2017-07-17 19:48 | Inpatient (IN) | payer OTHER ==
[~2017-07-17] VITALS: Ht 167.6 cm; Wt 83.0 kg
--- NOTE | ~2017-07-17 | PN ---
Unit #: [id number] #: [id number] Patient: ARSEN KING [id number] [facility] [address] [place] [address] [id number] MR#: [id number] NAME: ARSEN KING ROOM: P212 Age: 56 Sex: F Admission Date: 07/17/2017 : 1960 Attending Physician: Saurav Clarke M.D. Admitting Physician: Saurav Clarke M.D. Primary Care Physician: Don Haddad PROGRESS NOTES DATE 07/19/2017 DISCUSSION Ms. King is a 56-year-old white female with substance abuse and mood disorder who was seen today and chart was reviewed and case was discussed with the staff. She has been anxious, withdrawn and seclusive to herself. Meanwhile, she has been cooperative with treatment recommendations and has been taking medications and tolerating them fairly well with no reported side effects. MENTAL STATUS EXAMINATION Middle-aged white female who was casually dressed with fair personal hygiene and appears to be in no acute distress or discomfort. She was awake and alert with intact orientation. Her mood was anxious with congruent affect. Her speech is slow and restricted in content. Patient denies any suicidal or homicidal ideation. Her insight and judgement remains slightly impaired. TREATMENT PLAN 1. Will continue on current medications and treatment protocol. Will monitor her response to the medications and make further adjustments as needed. 2. Will continue to follow up. Dictated by... Don Page/efra TD: 07/19/2017 15:21 JOB #: [id number] Unit #: [id number] #: [id number] Patient: ARSEN KING PROGRESS NOTES Page 1 of 1 X Saurav Clarke MD PROGRESS NOTE
--- NOTE | ~2017-07-17 | PA ---
Unit #: [id number] #: [id number] Patient: ARSEN KING [id number] [facility] [address] [place] [address] [id number] I MR#: [id number] NAME: ARSEN KING ROOM: P212 Age: 56 Sex: F Admission Date: 07/17/2017 : 1960 Date of Assessment: 07/18/2017 Attending Physician: Saurav Clarke M.D. Admitting Physician: Saurav Clarke M.D. Primary Care Physician: Bryant Floyd M.D. PSYCHIATRIC ASSESSMENT DATE OF SERVICE 07/18/2017. IDENTIFYING DATA Ms. King is a 56-year-old, disabled, white female, who is a resident of [place], [place], and is known to me from previous encounter, was recently discharged from my care and was self-referred back to the hospital. CHIEF COMPLAINT "I've been abusing alcohol over the past week." HISTORY OF PRESENT ILLNESS Ms. King is a 56-year-old white female with history of substance abuse and dependence, who has been repeatedly coming to the hospital and then refusing to follow any treatment recommendations and just left the hospital actually less than a week ago and came back after she has signed out against medical advice on 07/10/2017 and now she tells us that she has been drinking again for the last week and that she has been prescribed methadone and is supposed to be taking 20 mg a day and does endorse; however, she was not meeting criteria for inpatient chemical detox again as she has been detoxed at least 2 or 3 times with the last one month alone and just left against medical advice a week ago, but then she stated that she is having suicidal ideation and has a plan to overdose on methadone and even though, it appeared to be a manipulative behavior keeping in mind the patient's history of repeat inpatient hospitalization and then refusing to follow up with any treatment recommendation, she was unable to contract for safety and as such, recommendation for inpatient level of care purely based on her psychiatric symptoms was made and the patient was stepped up to the inpatient unit. SUBSTANCE ABUSE HISTORY The patient reports history of substance abuse and dependence including alcohol and opioids. PAST PSYCHIATRIC HISTORY The patient has had history of psychiatric treatment at [facility] and review of the medical records indicate currently she is not active in any treatment program and once again as mentioned earlier has history of poor compliance with treatment recommendations. PAST MEDICAL HISTORY Hypertension and hepatitis C. Unit #: [id number] #: [id number] Patient: ARSEN KING ALLERGIES No known medication allergies. PERSONAL AND SOCIAL HISTORY A 56-year-old white female, who reports that she is single, unemployed, and essentially homeless and has poor social support system. MENTAL STATUS EXAMINATION Middle-aged white female who was casually dressed with fair personal hygiene, appears to be in no acute distress or discomfort. She was awake and alert on interaction with intact orientation to time, place, and person. Her mood was anxious and depressed with a congruent affect. Her speech was slow and restricted in content. Her thought processes were disorganized with some looseness of associations and flight of ideas. Her insight and judgment remain significantly impaired. DIAGNOSTIC IMPRESSION Psychiatric: Major depressive disorder, recurrent, moderate, without psychotic features; alcohol dependence, moderate; opioid dependence, moderate. Medical: None. Stressors: Moderate psychosocial stressors. TREATMENT PLAN The patient has presented with history of substance abuse and mood disorder, and has been decompensating and will need inpatient hospitalization for safety and stabilization. We will start her back on her home medications. We will adjust the medications and monitor response. ESTIMATED LENGTH OF STAY 5 to 7 days. ABILITY TO HELP SELF Limited. WILLINGNESS TO HELP SELF The patient appears to be willing to help self. STRENGTHS 1. Communicative. 2. Cooperative. PROBLEMS 1. Chronic dysphoric symptoms. 2. Poor social support system. DISCHARGE CRITERIA This will be contingent upon the patient's ability to show resolution of her depression and anxiety and her ability to stay safe to herself, particularly after discharge from the hospital. Dictated by... Saurav Clarke M.D. WAN/ladi TD: 07/18/2017 23:54 Unit #: [id number] #: [id number] Patient: ARSEN KING JOB #: [id number] PSYCHIATRIC ASSESSMENT Page 1 of 1 X Saurav Clarke MD PSYCHIATRIC ASSESSMENT
--- NOTE | ~2017-07-17 | HP ---
Unit #: [id number] #: [id number] Patient: STACI PENN [id number] [facility] [address] [place] [address] [id number] I MR#: [id number] NAME: STACI PENN ROOM: P203 Age: 56 Sex: F Admission Date: 07/17/2017 : 1960 Attending Physician: Saurav Clarke M.D. Admitting Physician: Saurav Clarke M.D. Primary Care Physician: Bryant Floyd M.D. HISTORY AND PHYSICAL Staci is a 56 year old admitted to [address] [place] [address] because of her continued abuse of alcohol. She was just discharged from this facility after treatment for the same. Patient was seen and H and P dated 07/09/17 was reviewed. This is current. No changes. Please see H and P dated 07/09/17. Dictated by... Shira Castro P.A.-C. for Don Carr/efra TD: 07/18/2017 16:16 JOB #: [id number] HISTORY AND PHYSICAL Page 1 of 1 X Shira Castro HISTORY AND PHYSICAL
--- NOTE | ~2017-07-17 | DS ---
Unit #: [id number] #: [id number] Patient: [facility] KING [id number] [facility] [address] [place] [address] [id number] MR#: [id number] NAME: ARSEN KING ROOM: P204 Age: 56 Sex: F Admission Date: 07/17/2017 : 1960 Discharge Date: 07/20/2017 Attending Physician: Saurav Clarke M.D. Primary Care Physician: Bryant Floyd M.D. DISCHARGE SUMMARY IDENTIFICATION DATA Ms. King is a 56-year-old white female who is a resident of [place], [place], and is known to us from previous encounter and was self-referred back to the hospital. DISCHARGE DIAGNOSES PSYCHIATRIC: Alcohol dependence, moderate. Opiate dependence, moderate. Alcohol-induced mood disorder. MEDICAL: Hypertension. Hepatitic C. STRESSORS: Mild psychosocial stressors. HISTORY OF PRESENT ILLNESS Same as in initial psychiatric evaluation. PAST PSYCHIATRIC HISTORY Same as in initial psychiatric evaluation. PAST MEDICAL HISTORY Same as in initial psychiatric evaluation. HOSPITAL COURSE The patient was admitted to the adult chemical dependency and psychiatric unit at [facility] [place] and was oriented to the hospital environment. Routine p.r.n. medications were initiated, and she was started back on her home medications. However, detox was not initiated as the patient just was discharged, and Celexa as an antidepressant was initiated, and she was closely monitored. The patient was wanting to go to long-term rehab level of care. child and family services specialist were asked to make a referral followed by which, it was decided that she will be discharged from the hospital. We will recommend ongoing outpatient psychiatric treatment. DISCHARGE MEDICATIONS Celexa 20 mg a day for depression. CONDITION AT DISCHARGE Stable. PROGNOSIS Fair. Unit #: [id number] #: [id number] Patient: ARSEN KING Dictated by... Don Page/bzg TD: 07/24/2017 11:43 JOB #: [id number] DISCHARGE SUMMARY Page 1 of 1 X Saurav Clarke MD X DISCHARGE SUMMARY
== END 2017-07-20 11:15 | disposition home or self-care (01) | DRG 885 ==
LOC: P2S 21:46 → POF 07-18 23:45 → P2S 07-18 23:50
DX: F33.1 Major depressive disorder, recurrent, moderate (principal); F11.20 Opioid dependence, uncomplicated; F10.24 Alcohol dependence with alcohol-induced mood disorder; Z56.0 Unemployment, unspecified; Z59.0 Homelessness; F41.9 Anxiety disorder, unspecified; B19.20 Unspecified viral hepatitis C without hepatic coma